=== PATIENT | female | born 1960 | race Caucasian/White ===

== ENCOUNTER → 2020-10-23 10:00 | Outpatient (CLI) | payer BC, SELFPAY ==
[2020-10-23 10:36] LABS: COVID19 -Nasal RAPID Negative (Negative)
== END ==
PROVIDERS: PCP Physician Assistant Medical; Visit Provider Specialist
DX: Z20.822 Contact with and (suspected) exposure to COVID-19 (principal)
CPT/HCPCS: 87635; C9803

== ENCOUNTER 2020-10-24 09:27 | Day surgery (SDC) | payer BC, SELFPAY ==
--- NOTE | 2020-10-24 | PATH_ITS ---
[facility] Accession Number: [id number] . 01 Material submitted: . PART A: stomach - GASTRIC POLYP BIOPSIES PART B: esophagus, E-G Junction - GE JUNCTION BIOPSIES . 02 Diagnosis: A. Gastric Polyp, Biopsies: Fundic gland polyp. No evidence of Helicobacter organisms on H/E stain. Negative for intestinal metaplasia. Negative for dysplasia and malignancy. . B. Gastroesophageal Junction, Biopsies: Squamous mucosa with mild reactive features of reflux esophagitis. Intraepithelial eosinophils are not increased. No columnar mucosa present for evaluation. Negative for dysplasia or malignancy. MRV 10/29/2020 1502 Local . 02 Electronically signed: . Omari Alberto MD, PhD, Pathologist NPI- [id number] . 01 Gross description: . Part A: GASTRIC POLYP BIOPSIES: Received in formalin are 3 fragment(s) of parra, soft tissue measuring 0.4 x 0.3 x 0.3 cm to 0.3 x 0.2 x 0.3 cm submitted entirely in 1 cassette(s) Part B: GE JUNCTION BIOPSIES: Received in formalin are 4 fragment(s) of parra, soft tissue measuring 0.3 x 0.2 x 0.1 cm to 0.2 x 0.2 x 0.1 cm submitted entirely in 1 cassette(s) /QBJ 10/26/2020 0825 Local . 02 Pathologist provided ICD-10: K31.84, K21.9, K31.7 . 02 CPT . 689024, [id number] Performed at: 01 [facility] [address], [place], [place] [id number] MD Lawson Camarena MD Phone: [phone] Performed at: 02 [facility] [address] [place] [id number] MD Dee Gabriel MD Phone: [phone]
[2020-10-24 09:57] VITALS: BP 176/93; PULSE 87; RESP 20; TEMP 36.9; O2SAT 97; BMI 38.7
--- NOTE | 2020-10-24 10:21 | PM.PREOP ---
Pre-operative Note COVID-19 COVID-19 status: Negative Result date/Date tested (Pos, Neg/Pending): 10/23/20 Interval Note History & Physical reviewed/Exam performed by Physician: Yes Changes to H&P: No
[2020-10-24] MEDS: LACTATED RINGERS 1,000 ML 42 ML IV (10:22)
[2020-10-24] MEDS: LIDOCAINE 4% SOLN 50 ML 20 ML TOP (10:51)
[2020-10-24 11:05] VITALS: BP 116/73; PULSE 77; RESP 16; TEMP 36.6; O2SAT 93
[2020-10-24 11:10] VITALS: BP 130/79; PULSE 74; RESP 14; O2SAT 96
[2020-10-24 11:15] VITALS: BP 102/80; PULSE 78; RESP 14; O2SAT 95
--- NOTE | 2020-10-24 11:17 | PM.OP.ENDO ---
Operative Date/Time/Diagnoses Date of procedure: 10/24/20 Time of procedure: 11:17 Pre-op diagnosis: Abraham's esophagus. Occasional dysphagia. Procedure & Clinicians Study performed: EGD with cold biopsy Same procedure as scheduled: Yes Indications: Surveillance of Abraham's Surgeon: Taiwo Szymanski Procedure Notes SCOAP/Timeout: Performed Procedure in detail: The patient was placed supine on the operating room table and underwent deep sedation was provided by anesthesiologist. This was done because of her intolerance to moderate sedation in the past. A bite block was inserted and scope was advanced through it into the esophagus. The esophagus was normal. GE junction at 38 cm from the incisors. There appeared to be a Schatzki ring in this area. It was not however narrowed. Stomach insufflated well. There were multiple gastric polyps that appeared to be gastric fundic polyps. Pyloric channel was patent. The duodenum was unremarkable of the 4th part. Scope was not back in the stomach the incisura was unremarkable a have the proximal stomach was remarkable for a small hiatal hernia. Biopsies were taken of several polyps. This was to confirm my suspicion that these were benign fundic polyps. Scope was brought up into the GE junction where biopsies were taken. There was no evidence of red tongues of tissue extending above the Schatzki ring. Scope was removed and the patient tolerated the procedure well. There were no apparent complications. Scope withdrawal time: Not applicable Sedation minutes: 0 (Anesthesiologist provided deep sedation due to patient's intolerance in the past to moderate sedation.) Findings: Abraham's esophagus (History of) and other findings (Gastric fundic polyps and a Schatzki ring at the GE junction) Specimen(s): other (Biopsies of the gastric polyps. GE junction biopsies.) Complications: none Post-procedure Recommendations: EGD in 3 years and Continue medication(s) Follow up: as needed Disposition: PACU
[2020-10-24 11:20] VITALS: BP 144/80; PULSE 81; RESP 19; O2SAT 94
[2020-10-24 11:43] VITALS: BP 138/74; PULSE 76; RESP 16; TEMP 36.8; O2SAT 97
--- NOTE | 2020-10-24 13:31 | SUR.PHASEII ---
Late entry. Pt left when ready. steady on feet. No pain, no nausea.
== END 2020-10-24 11:55 | disposition home or self-care (01) ==
PROVIDERS: PCP Physician Assistant Medical; Referring Provider Specialist; Visit Provider Specialist
PROC: 0DJ08ZZ Inspection of Upper Intestinal Tract, Via Natural or Artificial Opening Endoscopic (ICD-10-PCS; CPT 43235; principal; 2020-10-24 10:45)
DX: K21.00 Gastro-esophageal reflux disease with esophagitis, without bleeding (principal); Z87.19 Personal history of other diseases of the digestive system; R13.10 Dysphagia, unspecified; K22.2 Esophageal obstruction; K44.9 Diaphragmatic hernia without obstruction or gangrene; E03.9 Hypothyroidism, unspecified; K31.7 Polyp of stomach and duodenum
CPT/HCPCS: 43239; J2704